=== PATIENT | female | born 1930 | race Caucasian/White ===

== ENCOUNTER 2017-08-21 00:42 | Emergency (ER) | payer MEDICARE ==
[~2017-08-21] VITALS: Ht 160 cm; Wt 81.6 kg
--- OUTSIDE RECORDS SUMMARY | 2017-08-21 00:51 | XMS REPORT ---
Author Author Kanika Wilson [facility] Address [address] [place], [place] [id number] Care Team Providers Care Ribbon Inker Name Role Phone Kanika Wilson PCP [phone] Kanika Wilson PreferredProvider [phone] Allergies and Adverse Reactions Name Reaction Notes No known allergies Plan of Treatment Planned Activity Comments Planned Date Planned Time Plan/Goal PROTEIN URINE DIPSTICK 11/10/2016 12:00 AM Creatine ur 11/10/2016 12:00 AM CBC W/ MANUAL DIFF 11/10/2016 12:00 AM HEMOGLOBIN A1C 11/10/2016 12:00 AM CMP 11/10/2016 12:00 AM LIPID PANEL 11/10/2016 12:00 AM Magnesium level 11/10/2016 12:00 AM URIC ACID. 11/10/2016 12:00 AM Total triiodothyronine (T3) measurement 11/10/2016 12:00 AM TSH 11/10/2016 12:00 AM Free thyroxine (FT4) measurement 11/10/2016 12:00 AM VITAMIN D (25 HYDROXY) 11/10/2016 12:00 AM VITAMIN B12 & FOLATE 11/10/2016 12:00 AM VITAMIN B12 & FOLATE 11/10/2016 12:00 AM Parathyroid hormone (PTH) measurement 11/10/2016 12:00 AM Medications Active Name Start Date Estimated Completion Date SIG Comments carvedilol 25 mg oral tablet take 1 tablet (25 mg) by oral route 2 times per day with food gemfibrozil 600 mg oral tablet take 1 tablet (600 mg) by oral route 2 times per day 30 minutes before morning and evening meal levothyroxine 100 mcg oral tablet take 1 tablet (100 mcg) by oral route once daily trazodone 50 mg oral tablet take 1 tablet (50 mg) by oral route once daily at bedtime Vitamin D3 1,000 unit oral capsule take 1 capsule by oral route daily tramadol 50 mg oral tablet take 1 tablet (50 mg) by oral route every 6 hours as needed fish oil with omega 3 600 mg / 300mg oral take one capsule daily loratadine 10 mg oral tablet take 1 tablet (10 mg) by oral route once daily Symbicort 160-4.5 mcg/actuation inhalation HFA aerosol inhaler 10/23/201611/22 1 puff am and pm and then rinse throat cyanocobalamin (vitamin B-12) 1,000 mcg/mL injection solution 10/23/20162017 inject 1 milliliter (1,000 mcg) by intramuscular route once a month for 300 days Discontinued Name Start Date Discontinued Date SIG Comments tramadol 50 mg oral tablet 10/23/2016 Problem List Not available. Vital Signs Date Time BP-Sys(mm[Hg] BP-Stella(mm[Hg]) HR(bpm) RR(rpm) Temp WT HT HC BMI BSA BMI Percentile O2 Sat(%) 10/23/2016 10:01:00 AM 112 mmHg 68 mmHg 54 bpm 18 rpm 97 F 154 lbs 62 in 28.17 kg/m2 1.75 m2 93 % Social History Name Description Comments retired Tobacco Former smoker quit 25 years ago Alcohol Never Caffeine Current every day Exercises regularly walking, gardening, cleaning house History of Procedures Date Ordered Description Order Status 11/10/2016 12:00 AM ROUTINE VENIPUNCTURE Reviewed Results Summary Not available. History Of Immunizations Not available. History of Past Illness Name Date of Onset Comments Arthritis Hyperlipemia Kidney disease Hypothyroidism Seasonal allergic rhinitis due to pollen Oct 23 2016 10:12AM Hyperlipidemia, Mixed Oct 23 2016 10:12AM Chronic kidney disease, Stage III (moderate) Oct 23 2016 10:12AM Acquired hypothyroidism Oct 23 2016 10:12AM Pernicious anemia Oct 23 2016 10:12AM Vitamin D deficiency Oct 23 2016 10:12AM COPD (chronic obstructive pulmonary disease) with chronic bronchitis Oct 23 2016 10:12AM Insomnia Oct 23 2016 10:12AM Arthritis Oct 23 2016 10:12AM Hyperparathyroidism due to renal insufficiency Oct 23 2016 10:12AM Hyperglycemia Oct 23 2016 10:12AM Benign essential HTN Oct 23 2016 10:12AM Acute kidney failure, unspecified Nov 10 2016 9:36AM Chronic kidney disease, stage 3 (moderate) Nov 10 2016 9:36AM Essential hypertension Nov 10 2016 9:36AM Blood glucose elevated Nov 10 2016 9:36AM Acquired hyperlipoproteinemia Nov 10 2016 9:36AM Acquired hypothyroidism Nov 10 2016 9:36AM Low vitamin D level Nov 10 2016 9:36AM [place] anemia Nov 10 2016 9:36AM Hyperparathyroidism, secondary renal Nov 10 2016 9:36AM Payers Insurance Name Company Name Plan Name Plan Number Policy Number Policy Group Number Start Date Humana Humana [id number] N/A Medicare Part B Medicare Of [place] [id number] N/A History of Encounters Visit Date Visit Type Provider 11/10/2016 Laboratory Kanika Wilson CUSTOMER ENERGY SPECIALIST 10/23/2016 Office visit Kanika Wilson CUSTOMER ENERGY SPECIALIST 09/18/2010 Hospital Radha Ching MD
--- OUTSIDE RECORDS SUMMARY | 2017-08-21 00:51 | XMS REPORT ---
Author Author Kanika Wilson [facility] Address [address] [place], [place] [id number] Care Team Providers Care Graphotype Operator Name Role Phone Kanika Wilson PCP [phone] Kanika Wilson PreferredProvider [phone] Allergies and Adverse Reactions Name Reaction Notes No known allergies Plan of Treatment Planned Activity Comments Planned Date Planned Time Plan/Goal PROTEIN URINE DIPSTICK 11/10/2016 12:00 AM Medications Active Name Start [...] HC BMI BSA BMI Percentile O2 Sat(%) 11/20/2016 3:13:00 PM 142 mmHg 90 mmHg 98 bpm 18 rpm 98.6 F 155 lbs 62 in 28.35 kg/m2 1.75 m2 94 % 10/23/2016 10:01:00 AM 112 mmHg 68 mmHg 54 bpm 18 rpm 97 F 154 lbs 62 in 28.1667 kg/m 1.7481 m 93 % Social History Name Description Comments retired Tobacco Former smoker quit 25 years ago Alcohol Never Caffeine Current every day Exercises regularly walking, gardening, cleaning house History of Procedures Date Ordered Description Order Status 11/10/2016 12:00 AM ASSAY OF CREATINE Returned 11/10/2016 12:00 AM COMPLETE CBC AUTOMATED Returned 11/10/2016 12:00 AM GLYCOSYLATED HEMOGLOBIN TEST Returned 11/10/2016 12:00 AM COMPREHEN METABOLIC PANEL Returned 11/10/2016 12:00 AM LIPID PANEL Returned 11/10/2016 12:00 AM ASSAY OF MAGNESIUM Returned 11/10/2016 12:00 AM ASSAY OF BLOOD/URIC ACID Returned 11/10/2016 12:00 AM ASSAY TRIIODOTHYRONINE (T3) Returned 11/10/2016 12:00 AM ASSAY THYROID STIM HORMONE Returned 11/10/2016 12:00 AM ASSAY OF FREE THYROXINE Returned 11/10/2016 12:00 AM VITAMIN D 25 HYDROXY Returned 11/10/2016 12:00 AM VITAMIN B-12 Returned 11/10/2016 12:00 AM ASSAY OF FOLIC ACID SERUM Returned 11/10/2016 12:00 AM ASSAY OF PARATHORMONE Returned 11/10/2016 12:00 AM ROUTINE VENIPUNCTURE Reviewed 11/20/2016 12:00 AM THER/PROPH/DIAG INJ SC/IM Reviewed 11/20/2016 12:00 AM Depo-Medrol 40mg Injection Reviewed Results Summary Date and Description Results 11/10/2016 9:00 AM FREE T4 0.71 TSH 4.630 uIU/mLT3 TOTAL 51.0 ng/dLVITAMIN B12 606.0 pg/mLFOLATE 6.30 ng/mLPROTEIN UR <7 mg/dLCREAT UR RAND 18.90 mg/dLVITAMIN D 55.20 ng/mLHGB A1C 5.20 %Est Avg Glucose 102.5 mg/dLGLUCOSE 104.0 mg/dLSODIUM 139.0 mmol/LPOTASSIUM 5.30 mmol/LCHLORIDE 103.0 mmol/LCO2 30.0 mmol/LBUN 23.0 mg /dLCREATININE 1.60 mg/dLSGOT/AST 16.0 IU/LSGPT/ALT 7.0 IU/LALK PHOS 65.0 IU/ LTOTAL PROTEIN 6.60 g/dLALBUMIN 4.0 g/dLTOTAL BILI 0.30 mg/dLCALCIUM 9.0 mg/ dLAGE 87 GFR NonAA 30 GFR AA 36 eGFR 30 eGFR AA* 36 MAGNESIUM 2.0 mg/ dLTRIGLYCERIDES 145.0 mg/dLCHOLESTEROL 226.0 mg/dLHDL 27.0 mg/dLTOT CHOL/HDL 8.4 LDL (CALC) 170.0 mg/dLURIC ACID 6.2 mg/dLPTH, Intact 38 History Of Immunizations Not available. History of [...] vitamin D level Nov 10 2016 9:36AM [place] anemia Nov 10 2016 9:36AM Hyperparathyroidism, secondary renal Nov 10 2016 9:36AM Other vitamin B12 deficiency anemia Nov 20 2016 3:16PM DDD (degenerative disc disease), lumbar Nov 20 2016 3:16PM Sciatica of left side Nov 20 2016 3:16PM CKD (chronic kidney disease) stage 3, GFR 30-59 ml/min Nov 20 2016 3:16PM Payers Insurance Name Company Name Plan Name Plan Number Policy Number Policy Group Number Start Date Humana Humana [id number] N/A Medicare Part B Medicare Of [place] [id number] N/A History of Encounters Visit Date Visit Type Provider 11/20/2016 Office visit Kanika Wilson BALLROOM DANCE INSTRUCTOR 11/10/2016 Laboratory Kanika Wilson BALLROOM DANCE INSTRUCTOR 10/23/2016 Office visit Kanika Wilson BALLROOM DANCE INSTRUCTOR 09/18/2010 [facility] Radha Ching MD
--- OUTSIDE RECORDS SUMMARY | 2017-08-21 00:52 | XMS REPORT ---
Author Author Kanika Wilson [facility] Address [address] [place], [place] [address] Care Team Providers Care Wildlife Control Operator Name Role Phone Kanika Wilson PCP Kanika Wilson PreferredProvider Allergies and Adverse Reactions Name Reaction Notes No known allergies Plan of Treatment Not available. Medications Active Name Start Date Estimated Completion [...] (10 mg) by oral route once daily cyanocobalamin (vitamin B-12) 1,000 mcg/mL injection solution 10/23/20162017 inject 1 milliliter (1,000 mcg) by intramuscular route once a month for 300 days Name Start Date Expiration Date SIG Comments Symbicort 160-4.5 mcg/actuation inhalation HFA aerosol inhaler 10/23/201611/22 1 puff am and pm and then rinse throat Zithromax Z-Dat 250 mg oral tablet 01/01/2017 01/06/2017 take 2 tablets (500 mg ) by oral route once daily for 1 day then 1 tablet (250 mg) by oral route once daily for 4 days Discontinued Name Start Date Discontinued Date [...] Ordered Description Order Status 11/10/2016 12:00 AM URINALYSIS AUTO W/O SCOPE Reviewed 11/10/2016 12:00 AM ASSAY OF CREATINE Reviewed 11/10/2016 12:00 AM COMPLETE CBC AUTOMATED Reviewed 11/10/2016 12:00 AM GLYCOSYLATED HEMOGLOBIN TEST Reviewed 11/10/2016 12:00 AM COMPREHEN METABOLIC PANEL Reviewed 11/10/2016 12:00 AM LIPID PANEL Reviewed 11/10/2016 12:00 AM ASSAY OF MAGNESIUM Reviewed 11/10/2016 12:00 AM ASSAY OF BLOOD/URIC ACID Reviewed 11/10/2016 12:00 AM ASSAY TRIIODOTHYRONINE (T3) Reviewed 11/10/2016 12:00 AM ASSAY THYROID STIM HORMONE Reviewed 11/10/2016 12:00 AM ASSAY OF FREE THYROXINE Reviewed 11/10/2016 12:00 AM VITAMIN D 25 HYDROXY Reviewed 11/10/2016 12:00 AM VITAMIN B-12 Reviewed 11/10/2016 12:00 AM ASSAY OF FOLIC ACID SERUM Reviewed 11/10/2016 12:00 AM ASSAY OF PARATHORMONE Reviewed 11/10/2016 12:00 AM ROUTINE VENIPUNCTURE Reviewed 11/20/2016 12:00 AM THER/PROPH/DIAG INJ SC/IM Reviewed 11/20/2016 12:00 AM Depo-Medrol 40mg Injection Reviewed 01/01/2017 12:00 AM THER/PROPH/DIAG INJ SC/IM Reviewed 01/01/2017 12:00 AM Decadron 4mg Injection Reviewed 01/01/2017 12:00 AM Depo-Medrol 40mg Injection Reviewed 04/22/2017 12:00 AM THER/PROPH/DIAG INJ SC/IM Reviewed 04/22/2017 12:00 AM B12 1000mcg Injection Reviewed 06/08/2017 12:00 AM THERAPEUTIC PROPHYLACTIC/DX INJECTION SUBQ/IM Reviewed Results Summary Date and Description Results [...] 8.4 LDL (CALC) 170.0 mg/dLURIC ACID 6.2 mg/dLWBC 4.9 RBC 3.42 HGB 10.40 g/dLHCT 33.30 %MCV 97.0 fLMCH 30.40 pgMCHC 31.20 g/dLRDW SD 50 RDW CV 14.0 %MPV 11.50 fLPLT 152 NRBC# 0.00 NRBC% 0.0 %NEUT 64.70 %%LYMP 19.90 %%MONO 7.30 %%EOS 6.70 % %BASO 0.80 %#NEUT 3.18 #LYMP 0.98 #MONO 0.36 #EOS 0.33 #BASO 0.04 SEGS 66 BANDS 1 LYMPHS 20 MONOS 8 EOS 5.0 %PTH, Intact 38 History Of Immunizations Not available. [...] GFR 30-59 ml/min Nov 20 2016 3:16PM Acute seasonal allergic rhinitis due to pollen Jan 01 2017 11:57AM Acute bronchitis, unspecified organism Jan 01 2017 11:57AM B12 deficiency Apr 22 2017 10:25AM B12 deficiency Jun 08 2017 1:05PM Payers Insurance Name Company Name Plan Name Plan Number Policy Number Policy Group Number Start Date Humana Humana [id number] N/A Medicare Part B Medicare Of [place] [id number] N/A History of Encounters Visit Date Visit Type Provider 06/08/2017 Nurse visit Kanika Wilson METER MECHANIC 04/22/2017 Nurse visit Kanika Wilson METER MECHANIC 01/01/2017 Office visit Kanika Wilson METER MECHANIC 11/20/2016 Office visit Kanika Wilson METER MECHANIC 11/10/2016 Laboratory Kanika Wilson METER MECHANIC 10/23/2016 Office visit Kanika Wilson METER MECHANIC 09/18/2010 [facility] Radha Ching MD
--- OUTSIDE RECORDS SUMMARY | 2017-08-21 00:52 | XMS REPORT ---
Author Author Kanika Wilson [facility] Address [address] [place], [place] [address] Care Team Providers Care Flour Blender Name Role Phone Kanika Wilson PCP [phone] Kanika Wilson PreferredProvider [phone] Allergies and Adverse Reactions Name Reaction Notes [...] 04/22/2017 12:00 AM B12 1000mcg Injection Reviewed Results Summary Date and Description [...] vitamin D level Nov 10 2016 9:36AM [place] anemia Nov 10 2016 9:36AM Hyperparathyroidism, secondary [...] 11:57AM B12 deficiency Apr 22 2017 10:25AM Payers Insurance Name Company Name Plan Name Plan Number Policy Number Policy Group Number Start Date Humana Humana [id number] N/A Medicare Part B Medicare Of [place] [id number] N/A History of Encounters Visit Date Visit Type Provider 04/22/2017 Nurse visit Kanika Wilson AIDS COUNSELOR 01/01/2017 Office visit Kanika Wilson AIDS COUNSELOR 11/20/2016 Office visit Kanika Wilson AIDS COUNSELOR 11/10/2016 Laboratory Kanika Wilson AIDS COUNSELOR 10/23/2016 Office visit Kanika Wilson AIDS COUNSELOR 09/18/2010 Louisa Ching MD
--- OUTSIDE RECORDS SUMMARY | 2017-08-21 00:52 | XMS REPORT ---
Author Author Kanika Wilson [facility] Address [address] [place], [place] [address] Care Team Providers Care Powerhouse Helper Name Role Phone Kanika Wilson PCP [phone] Kanika Wilson PreferredProvider [phone] Allergies and Adverse Reactions Name Reaction Notes [...] 01/01/2017 12:00 AM Depo-Medrol 40mg Injection Reviewed Results [...] bronchitis, unspecified organism Jan 01 2017 11:57AM Payers Insurance Name Company Name Plan Name Plan Number Policy Number Policy Group Number Start Date Humana Humana [id number] N/A Medicare Part B Medicare Of [place] [id number] N/A History of Encounters Visit Date Visit Type Provider 01/01/2017 Office visit Kanika Wilson WASHTUB WORKER HELPER 11/20/2016 Office visit Kanika Wilson WASHTUB WORKER HELPER 11/10/2016 Laboratory Kanika Wilson WASHTUB WORKER HELPER 10/23/2016 Office visit Kanika Wilson WASHTUB WORKER HELPER 09/18/2010 Hospital Radha Ching MD
--- OUTSIDE RECORDS SUMMARY | 2017-08-21 00:53 | XMS REPORT ---
Author Author Kanika Wilson [facility] Address [address] [place], [place] [phone] Care Team Providers Care Custom Car Builder Name Role Phone Kanika Wilson PCP Kanika [...] 12:00 AM THERAPEUTIC PROPHYLACTIC/DX INJECTION SUBQ/IM Reviewed 06/08/2017 12:00 AM B12 1000mcg Injection, RHC Medicare Reviewed Results Summary Date and Description Results [...] vitamin D level Nov 10 2016 9:36AM [place] anemia Nov 10 2016 9:36AM Hyperparathyroidism, secondary [...] Policy Number Policy Group Number Start Date Medicare [facility] Medicare [facility] [id number] N/A Medicare Part A Medicare - Lab/Xray [id number] N/A Humana Humana [id number] N/A Medicare Part B Medicare Of [place] [id number] N/A History of Encounters Visit Date Visit Type Provider 06/08/2017 Nurse visit Kanika Wilson BABY STROLLER RENTAL CLERK 04/22/2017 Nurse visit Kanika Wilson BABY STROLLER RENTAL CLERK 01/01/2017 Office visit Kanika Wilson BABY STROLLER RENTAL CLERK 11/20/2016 Office visit Kanika Wilson BABY STROLLER RENTAL CLERK 11/10/2016 Laboratory Kanika Shaun Wilson BABY STROLLER RENTAL CLERK 10/23/2016 Office visit Kanika Wilson BABY STROLLER RENTAL CLERK 09/18/2010 [facility] Radha Ching MD
--- OUTSIDE RECORDS SUMMARY | 2017-08-21 00:53 | XMS REPORT ---
Author Author Kanika Wilson [facility] Address [address] [place], [place] [address] Care Team Providers Care Senior Front End Developer Name Role Phone Kanika Wilson PCP [phone] Kanika Wilson PreferredProvider [phone] Allergies and Adverse Reactions Name Reaction Notes [...] am and pm and then rinse throat Discontinued Name Start Date Discontinued Date SIG [...] Reviewed 11/10/2016 12:00 AM ASSAY OF CREATINE Returned [...] Policy Group Number Start Date Humana Humana [id number] N/A Medicare Part B Medicare Of [place] [id number] N/A History of Encounters Visit Date Visit Type Provider 11/20/2016 Office visit Kanika Wilson XEROX MACHINE OPERATOR 11/10/2016 Laboratory Kanika Wilson XEROX MACHINE OPERATOR 10/23/2016 Office visit Kanika Wilson XEROX MACHINE OPERATOR 09/18/2010 Hospital Radha Ching MD
--- OUTSIDE RECORDS SUMMARY | 2017-08-21 00:53 | XMS REPORT ---
Author Author Kanika Wilson [facility] Address [address] [place], [place] [address] Care Team Providers Care Coal Tower Operator Name Role Phone Kanika Wilson PCP [phone] Kanika Wilson PreferredProvider [phone] Allergies and Adverse Reactions Name Reaction Notes [...] vitamin D level Nov 10 2016 9:36AM [place] anemia Nov 10 2016 9:36AM Hyperparathyroidism, secondary [...] Policy Group Number Start Date Humana Humana [id number] N/A Medicare Part B Medicare Of [place] [id number] N/A History of Encounters Visit Date Visit Type Provider 04/22/2017 Nurse visit Kanika Wilson RFID TECHNICIAN 01/01/2017 Office visit Kanika Wilson RFID TECHNICIAN 11/20/2016 Office visit Kanika Wilson RFID TECHNICIAN 11/10/2016 Laboratory Kanika Wilson RFID TECHNICIAN 10/23/2016 Office visit Kanika Wilson RFID TECHNICIAN 09/18/2010 Louisa Ching MD
--- OUTSIDE RECORDS SUMMARY | 2017-08-21 00:54 | XMS REPORT ---
Author Author Kanika Wilson [facility] Address [address] [place], [place] [address] Care Team Providers Care Development Associate Name Role Phone Kanika Wilson PCP Kanika Wilson PreferredProvider Allergies and Adverse Reactions Name Reaction Notes No known allergies Plan of Treatment Planned Activity Comments Planned Date Planned Time Plan/Goal TSH 07/08/2017 12:00 AM T4 FREE 07/08/2017 12:00 AM Medications Active Name Start Date Estimated Completion Date SIG Comments levothyroxine 100 mcg oral tablet take 1 tablet (100 mcg) by oral route once daily Vitamin D3 1,000 unit oral capsule take 1 capsule by oral route daily fish oil with omega 3 600 mg / 300mg oral take one capsule daily cyanocobalamin (vitamin B-12) 1,000 mcg/mL injection solution 10/23/20162017 inject 1 milliliter (1,000 mcg) by intramuscular route once a month for 300 days Namenda Titration Dat 5-10 mg oral tablets,dose pack 07/07/2017 take as directed DAILY ON PACK Celexa 20 mg oral tablet 07/07/2017 08/06/2017 take 1 tablet (20 mg) by oral route once daily in the morning for 30 days carvedilol 25 mg oral tablet 07/07/2017 10/05/2017 take 1 tablet (25 mg) by oral route per day with food for 90 days tramadol 50 mg oral tablet 07/07/2017 08/06/2017 take 1 tablet (50 mg) by oral route AT BEDTIME Name Start Date Expiration Date SIG Comments [...] Name Start Date Discontinued Date SIG Comments gemfibrozil 600 mg oral tablet 07/07/2017 take 1 tablet (600 mg) by oral route 2 times per day 30 minutes before morning and evening meal tramadol 50 mg oral tablet 10/23/2016 trazodone 50 mg oral tablet 07/07/2017 take 1 tablet (50 mg) by oral route once daily at bedtime loratadine 10 mg oral tablet 07/07/2017 take 1 tablet (10 mg) by oral route once daily Problem List Not available. Vital Signs Date Time BP-Sys(mm[Hg] BP-Stella(mm[Hg]) HR(bpm) RR(rpm) Temp WT HT HC BMI BSA BMI Percentile O2 Sat(%) 07/07/2017 10:34:00 AM 132 mmHg 84 mmHg 58 bpm 18 rpm 97.6 F 145.375 lbs 62 in 26.59 kg/m2 1.70 m2 97 % 11/20/2016 3:13:00 PM 142 mmHg 90 mmHg 98 bpm 18 rpm 98.6 F 155 lbs 62 in 28.3496 kg/m 1.7537 m 94 % 10/23/2016 10:01:00 AM 112 mmHg [...] 10:25AM B12 deficiency Jun 08 2017 1:05PM Alzheimer disease Jul 07 2017 10:35AM Hyperlipidemia, Mixed Jul 07 2017 10:35AM Hypertension, Benign Essential Jul 07 2017 10:35AM Constipation Jul 07 2017 10:35AM Hypothyroidism (acquired) Jul 08 2017 6:13PM Payers Insurance Name Company Name Plan Name Plan Number Policy Number Policy Group Number Start Date Medicare RHC Medicare RHC [id number] N/A Medicare Part A Medicare - Lab/Xray [id number] N/A Humana Humana [id number] N/A Medicare Part B Medicare Of [place] [id number] N/A History of Encounters Visit Date Visit Type Provider 07/07/2017 Office visit Kanika Wilson TURNING MACHINE OPERATOR 06/08/2017 Nurse visit Kanika Wilson TURNING MACHINE OPERATOR 04/22/2017 Nurse visit Kanika Wilson TURNING MACHINE OPERATOR 01/01/2017 Office visit Kanika Wilson TURNING MACHINE OPERATOR 11/20/2016 Office visit Kanika Wilson TURNING MACHINE OPERATOR 11/10/2016 Laboratory Kanika Wilson TURNING MACHINE OPERATOR 10/23/2016 Office visit Kanika Wilson TURNING MACHINE OPERATOR 09/18/2010 Louisa Ching MD
--- OUTSIDE RECORDS SUMMARY | 2017-08-21 00:54 | XMS REPORT | CCD ---
Author Author JUWAN ZAPATA Organization Unknown Address [address] [facility] [address] [place], [place] [address] Care Team Providers Care Trapeze Artist Name Role Phone EMPERATRIZ JI DO Attphys JILAMR DO Prisurg Vital Signs Unknown or Not Available. Allergies Allergy Code Allergy Type Reaction Status No Known Drug Allergies 0 No known drug allergies Active Procedures Procedure Code Procedure Type Date ^CBC W/AUTO DIFF 9396119 SNOMED CT 06/08/2015 CBC W/ AUTO DIFF (RFLX MAN DIFF IF IND) 7948833 SNOMED CT 06/08/2015 COMPREHENSIVE METABOLIC PANEL 507032150 SNOMED CT [address] 06/08/2015 ABDOMEN 2 VIEW DECUB/UPRIGHT 440951029 SNOMED CT 2015 History of Immunizations Unknown or Not Available. Problems Unknown or Not Available. Results COMPREHENSIVE METABOLIC PANEL - Collect Date/Time: 06/08/2015 13:50 Test Name Code Test Result Test Units Test Ref Range GLUCOSE 2345-7 89 MG/DL L=70 H=100 SODIUM 2951-2 139 MEQ/L L=135 H=148 POTASSIUM 2823-3 4.6 MEQ/L L=3.5 H=5.3 CHLORIDE 2075-0 104 MEQ/L L=96 H=110 CO2 2028-9 25 MEQ/L L=22 H=29 BUN 3094-0 22 MG/DL L=8 H=22 CREATININE 2160-0 1.5 MG/DL L=0.6 H=1.6 SGOT/AST 1920-8 16 IU/L L=10 H=40 SGPT/ALT 1742-6 9 IU/L L=8 H=54 ALK PHOS 6768-6 66 IU/L L=35 H=115 TOTAL PROTEIN 2885-2 6.6 G/DL L=5.5 H=8.5 ALBUMIN 1751-7 4.0 G/DL L=3.1 H=5.4 TOTAL BILI 1975-2 0.3 MG/DL L=0.0 H=1.5 CALCIUM 75807-9 9.6 MG/DL L=8.2 H=10.6 AGE 85 yrs GFR NonAA 33 GFR AA 40 eGFR 33 mL/min/1.7 eGFR AA* 40 mL/min/1.7 LIPASE - Collect Date/Time: 06/08/2015 13:50 Test Name Code Test Result Test Units Test Ref Range LIPASE 3040-3 41 U/L L=8 H=78 CBC W/ AUTO DIFF (RFLX MAN DIFF IF IND) - Collect Date/Time: 06/08/2015 13:50 Test Name Code Test Result Test Units Test Ref Range WBC 06198-2 5.4 TH/CMM L=4.5 H=10.8 RBC 789-8 3.41 ML/CMM L=4.20 H=5.40 HGB 718-7 10.6 G/DL L=12.0 H=16.0 HCT 4544-3 32.1 % L=37.0 H=47.0 MCV 94 FL L=81 H=99 MCH 31.1 PG L=27.0 H=33.0 MCHC 33.0 G/DL L=31.0 H=36.0 RDW SD 48 FL L=36 H=50 RDW CV 14.1 % L=0.0 H=14.8 MPV 10.4 FL L=9.3 H=12.5 PLT 777-3 157 TH/CMM L=130 H=440 NRBC# 0.00 TH/CMM L=0.00 H=0.00 NRBC% 0.0 /100WBC L=0.0 H=2.0 %NEUT 68.9 % %LYMP 20.2 % %MONO 7.2 % %EOS 3.1 % %BASO 0.6 % #NEUT 3.72 TH/CMM L=2.10 H=8.20 #LYMP 1.09 TH/CMM L=0.90 H=5.20 #MONO 0.39 TH/CMM L=0.16 H=1.00 #EOS 0.17 TH/CMM L=0.00 H=0.80 #BASO 0.03 TH/CMM L=0.00 H=0.20 MANUAL DIFF NOT IND N/A Active Medications Unknown or Not Available. Medications Administered During Visit Unknown or Not Available. Encounters Encounter Diagnosis Diagnosis Code Start Date Noninfectious gastroenteritis 83395824 06/08/2015 Social History Smoking Status Code Start Date End Date Never smoker [id number] Patient Decision Aids Unknown or Not Available. Discharge Instructions You were admitted to [facility] on 06/08/2015 13:17 with a principal diagnosis of Noninfective gastroenteritis and colitis, unspecified You had the following tests done: CBC W/ AUTO DIFF (RFLX MAN DIFF IF IND) COMPREHENSIVE METABOLIC PANEL LIPASE You were discharged from [facility] on 06/08/2015 15:07 Should you have any questions prior to discharge, please contact a member of your healthcare team. If you have left the hospital and have any questions, please contact your primary care physician. Chief Complaint and Reason For Visit Chief Complaint Date of Onset ABDOMINAL PAIN DIARRHEA ACHY Function Status Unknown or Not Available. Plan of Care Unknown or Not Available. Referral/Transition of Care Unknown or Not Available.
--- OUTSIDE RECORDS SUMMARY | 2017-08-21 00:54 | XMS REPORT ---
Author Author Kanika Wilson [facility] Address [address] [place], [place] [id number] Care Team Providers Care Contact Lens Fitter Name Role Phone Kanika Wilson PCP Kanika [...] vitamin D level Nov 10 2016 9:36AM [place] anemia Nov 10 2016 9:36AM Hyperparathyroidism, secondary [...] 2017 10:35AM Constipation Jul 07 2017 10:35AM Payers Insurance Name Company Name Plan Name Plan Number Policy Number Policy Group Number Start Date Medicare RHC Medicare RHC [id number] N/A Medicare Part A Medicare - Lab/Xray [id number] N/A Hum[employer] Hum[employer] [id number] N/A Medicare Part B Medicare Of [place] [id number] N/A History of Encounters Visit Date Visit Type Provider 07/07/2017 Office visit Kanika Wilson MACHINE ROUGH ROUNDER 06/08/2017 Nurse visit Kanika Wilson MACHINE ROUGH ROUNDER 04/22/2017 Nurse visit Kanika Wilson MACHINE ROUGH ROUNDER 01/01/2017 Office visit Kanika Wilson MACHINE ROUGH ROUNDER 11/20/2016 Office visit Kanika Wilson MACHINE ROUGH ROUNDER 11/10/2016 Laboratory Kanika Wilson MACHINE ROUGH ROUNDER 10/23/2016 Office visit Kanika Wilson MACHINE ROUGH ROUNDER 09/18/2010 Hospital Radha Ching MD
--- OUTSIDE RECORDS SUMMARY | 2017-08-21 00:54 | XMS REPORT | CCD ---
Author Author JUWAN ZAPATA Organization Unknown Address [address] [facility] [address] [place], [place] [id number] Care Team Providers Care Glass Smoother Name Role Phone [facility] [place] Attphys [facility] [place] Prisurg Vital Signs Unknown or Not Available. Allergies Allergy Code Allergy Type Reaction Status No Known Drug Allergies 0 No known drug allergies Active Procedures Procedure Code Procedure Type Date CX CHEST [id number] 05/31/2015 History of Immunizations Unknown or Not Available. Problems Unknown or Not Available. Results Unknown or Not Available. Active Medications Unknown or Not Available. Medications Administered During Visit Unknown or Not Available. Encounters Encounter Diagnosis Diagnosis Code Start Date Acute bronchitis, unspecified J209 05/31/2015 Social History Smoking Status Code Start Date End Date Never smoker [id number] Patient Decision Aids Unknown or Not Available. Discharge Instructions You were admitted to [facility] on 05/31/2015 with a principal diagnosis of Acute bronchitis, unspecified. You were discharged from [facility] on 05/31/2015. Should you have any questions prior to discharge, please contact a member of your healthcare team. If you have left the hospital and have any questions, please contact your primary care physician. Chief Complaint and Reason For Visit Chief Complaint Date of Onset COUGH Function Status Unknown or Not Available. Plan of Care Unknown or Not Available. Referral/Transition of Care Unknown or Not Available.
--- NOTE | 2017-08-21 03:29 | ED Fall/Injury ---
General Chief Complaint: Trauma-Non Activation Stated Complaint: FALL Nursing Triage Note: pt brought in by ems from [facility]. per snf staff, pt rolled out of bed and was found on floor. per pt, she had gotten herself dressed, fell on floor, and picked herself back up off the floor. pt karen any pain or hitting her head. Source: patient, EMS Exam Limitations: clinical condition (baseline dementia) History of Present Illness Date Seen by Provider: Aug 21, 2017 Time Seen by Provider: 01:30 Initial Comments Patient presents to ER by EMS from [facility] where staff says that she rolled out of bed she says she got herself back up because of back to bed and EMS says she was in bed and they got there. Patient denies having any pain anywhere. She was walking around the room without difficulty. She has no changes in vision, numbness, headache, nausea, shortness of breath, dysuria. Allergies and Home Medications Allergies Coded Allergies: No Known Drug Allergies (Unverified , 08/21/17) Patient Home Medication List Home Medication List Reviewed: Yes Constitutional: No chills, No diaphoresis Eyes: Denies Blindness, Denies Blurred Vision, Denies Drainage Ears, Nose, Mouth, Throat: denies ear pain, denies nose pain Respiratory: No cough, No short of breath Cardiovascular: No chest pain, No edema Gastrointestinal: No abdominal pain, No diarrhea, No nausea Genitourinary: No discharge, No dysuria Past Sgervbx-Ciuyew-Psbwte Hx Patient Social History Alcohol Use: Denies Use Recreational Drug Use: No Smoking Status: Never a Smoker Recent Foreign Travel: No Contact w/Someone Who Travel: No Recent Infectious Disease Expo: No Physical Exam Vital Signs Vital Signs - First Documented 08/21/17 00:42 Pulse 85 Resp 20 B/P (MAP) 144/63 (90) Pulse Ox 95 O2 Delivery Room Air Capillary Refill : Less Than 3 Seconds General Appearance: WD/WN, no apparent distress HEENT: PERRL/EOMI, pharynx normal, other (negative for hemotympanum or Booth sign. 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, no motor/sensory deficits, alert, normal mood/affect, other (oriented to person and place) Skin: normal color, warm/dry [place] Coma Score Best Eye Response: (4) Open Spontaneously Best Verbal Response: (5) Oriented Best Motor Response: (6) Obeys Commands [place] Total: 15 Progress/Results/Core Measures Results/Orders My Orders Orders - SHABANA HUSSEIN Ct Head/Cervical Spine Wo (08/21/17 03:23) Vital Signs/I&O Vital Sign - Last 12Hours 08/21/17 00:42 Pulse 85 Resp 20 B/P (MAP) 144/63 (90) Pulse Ox 95 O2 Delivery Room Air Blood Pressure Mean: 90 Progress Note : Time: 03:27 Progress Note The patient is not on aspirin or antiplatelet or blood thinners. She has been walking around the room at baseline. According to EMS her primary care provider was just trying to get her to go to [facility] to get a CT scan of the head but they do not have CT capability. Diagnostic Imaging Diagonstic Imaging: CT Plain Films/CT/US/NM/MRI: c-spine, head Comments No CT evidence for acute intracranial injury. No definite evidence for cervical spine fracture. Evaluation somewhat limited secondary to motion artifact. There is straightening of the normal cervical lordosis which may be related to muscle spasm. Degenerative changes of the cervical spine. Reviewed: Reviewed by Me Departure Impression Impression: Primary Impression: Fall Qualified Codes: W19.XXXA - Unspecified fall, initial encounter Disposition: 01 HOME, SELF-CARE Condition: Stable Departure-Patient Inst. Decision time for Depature: 04:33 Referrals: BETHANY MARR MD (PCP/Family) Primary Care Physician Patient Instructions: Preventing Falls in the Older Adult Copy Copies To 1: BETHANY MARR MD, TITUS J Aug 21, 2017 03:29
[2017-08-21 06:00] VITALS: BP 144/63
--- NOTE | 2017-08-21 06:58 | Diagnostic Imaging Report ---
PROCEDURE: CT head and CT cervical spine without contrast. TECHNIQUE: Multiple contiguous axial images were obtained through the brain and cervical spine without the use of intravenous contrast. Sagittal and coronal reformations through the cervical spine were then performed. INDICATION: Fall. Patient noncompliant. COMPARISON: None. FINDINGS: HEAD CT: No acute intracranial hemorrhage, mass effect or edema is seen. Arcos-white junction is preserved. Ventricles appear normal. There are moderate changes of probable chronic microvascular ischemic disease in the white matter. There is some chronic appearing mucosal thickening in left maxillary sinus. CERVICAL SPINE CT: Evaluation is limited by motion artifact. There is some straightening of the normal cervical lordosis which is nonspecific but may be muscular positional. There is also mild anterior subluxation of C4 and C5 and C5 on C6 which is likely degenerative. No acute fracture or traumatic malalignment is suspected. Vertebral body heights are maintained. There is disc space narrowing and spurring at multiple levels, particularly at C6/C7. There is facet arthropathy throughout cervical spine with multiple levels of foraminal narrowing. IMPRESSION: 1. No evidence of an acute intracranial abnormality. 2. No evidence of acute cervical spine abnormality. Evaluation is slightly limited due to motion artifact. There are diffuse degenerative changes as described. Agree with [facility] interpretation. Dictated by: Dictated on workstation # [id number]
== END 2017-08-21 06:00 | disposition home or self-care (01) ==
LOC: ER 00:48
DX: Z04.3 Encounter for examination and observation following other accident (principal); R40.2142 Coma scale, eyes open, spontaneous, at arrival to emergency department; R40.2252 Coma scale, best verbal response, oriented, at arrival to emergency department; R40.2362 Coma scale, best motor response, obeys commands, at arrival to emergency department; W06.XXXA Fall from bed, initial encounter
CPT/HCPCS: 70450; 72125

== ENCOUNTER 2017-08-23 19:11 | Emergency (ER) | payer MEDICARE ==
[~2017-08-23] VITALS: Ht 160 cm; Wt 81.6 kg
[2017-08-23] MEDS ORDERED: RT-ALBUTEROL/IPRATROPIUM 3 ML (DUONEB) VIAL INH ONE (19:30)
--- NOTE | 2017-08-23 19:38 | ED Fall/Injury ---
General Chief Complaint: Trauma-Non Activation Stated Complaint: FALL Nursing Triage Note: fall Source: patient, EMS, other (Marlyn at [facility]) Exam Limitations: other (dementia) History of Present Illness Date Seen by Provider: Aug 23, 2017 Time Seen by Provider: 19:15 Initial Comments 87-year-old female patient presents to the emergency department with complaints of falling earlier today that was witnessed by nursing staff at [facility]. Patient is known to this examiner for routine medical care at [facility] for Dr. Marr. Patient reportedly lost her balance and fell hitting the left side on the doorjam/wall. Staff denies LOC. Patient denies pain. Patient was started on oral antibiotics today for a UTI. Location Injury Occurred: [facility] Occurred: this evening Injuries/Pain Location: no injury Context: lost balance Loss of Consciousness: no loss of consciousness Allergies and Home Medications Allergies Coded Allergies: No Known Drug Allergies (Unverified , 08/21/17) Constitutional: no symptoms reported, No chills, No fever Eyes: No Symptoms Reported Ears, Nose, Mouth, Throat: no symptoms reported Respiratory: No cough, No phlegm, No short of breath Cardiovascular: No chest pain, No edema, No syncope Gastrointestinal: No abdominal pain, No constipation, No diarrhea, No loss of appetite, No nausea, No vomiting Genitourinary: no symptoms reported Musculoskeletal: No back pain, No joint pain, No neck pain Skin: No change in color, No lumps Psychiatric/Neurological: Denies Headache, Denies Numbness, Denies Paresthesia , Denies Seizure, Denies Tingling, Denies Weakness All Other Systems Reviewed Negative Unless Noted: Yes (Negative excepted noted.) Past Erzvzhb-Gkfxph-Aecxwt Hx Patient Social History Alcohol Use: Denies Use Recreational Drug Use: No Smoking Status: Never a Smoker Recent Foreign Travel: No Contact w/Someone Who Travel: No Recent Infectious Disease Expo: No Recent Hopitalizations: No Immunizations Up To Date Tetanus Booster (TDap): Unknown PED Vaccines UTD: Yes Seasonal Allergies Seasonal Allergies: No Surgeries History of Surgeries: Yes Respiratory History of Respiratory Disorde: No Cardiovascular History of Cardiac Disorders: Yes Cardiac Disorders: Hypertension Neurological History of Neurological Disord: Yes Neurological Disorders: Dementia Genitourinary History of Genitourinary Disor: Yes Genitourinary Disorders: UTI-Chronic Gastrointestinal History of Gastrointestinal Di: Yes Gastrointestinal Disorders: Chronic Constipation Musculoskeletal History of Musculoskeletal Dis: No Endocrine History of Endocrine Disorders: Yes Endocrine Disorders: Hypothyroidsim HEENT History of HEENT Disorders: No Cancer History of Cancer: No Psychosocial History of Psychiatric Problem: Yes Behavioral Health Disorders: Anxiety, Depression Integumentary History of Skin or Integumenta: No Reviewed Nursing Assessment Reviewed/Agree w Nursing PMH: Yes Family Medical History Significant Family History: No Pertinent Family Hx Physical Exam Vital Signs Vital Signs - First Documented 08/23/17 19:15 Temp 97.9 Pulse 72 Resp 12 B/P (MAP) 120/69 (86) Pulse Ox 94 O2 Delivery Nasal Cannula O2 Flow Rate 3.00 Capillary Refill : Less Than 3 Seconds General Appearance: WD/WN, no apparent distress HEENT: PERRL/EOMI, normal ENT inspection, TMs normal, pharynx normal Neck: non-tender, full range of motion, supple, normal inspection Cardiovascular: normal peripheral pulses, regular rate, rhythm, no edema, no gallop, no murmur Respiratory: chest non-tender, no respiratory distress, no accessory muscle use , rales, wheezing, expiration Peripheral Pulses: 2+ Carotid (R), 2+ Carotid (L), 2+ Dorsalis Pedis (R), 2+ Left Dors-Pedis (L), 2+ Radial Pulses (R), 2+ Radial Pulses (L) Gastrointestinal: normal bowel sounds, non tender, soft, no organomegaly, No distended Extremities: normal range of motion, non-tender, normal inspection, no pedal edema, no calf tenderness, normal capillary refill 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, no motor/sensory deficits, alert, normal mood/affect, other (oriented to self (similar to previous exams at the [facility]).) Skin: normal color, warm/dry, No ecchymosis [place] Coma Score Best Eye Response: (4) Open Spontaneously Best Verbal Response: (4) Confused Conversation (similar to usual exams at the [facility]) Best Motor Response: (6) Obeys Commands [place] Total: 14 Progress/Results/Core Measures Results/Orders Lab Results Laboratory Tests Test 08/23/17 19:35 Range/Units White Blood Count 6.0 4.3-11.0 10^3/uL Red Blood Count 3.19 L 4.35-5.85 10^6/uL Hemoglobin 10.2 L 11.5-16.0 G/DL Hematocrit 33 L 35-52 % Mean Corpuscular Volume 105 H 80-99 FL Mean Corpuscular Hemoglobin 32 25-34 PG Mean Corpuscular Hemoglobin Concent 31 L 32-36 G/DL Red Cell Distribution Width 16.1 H 10.0-14.5 % Platelet Count 120 L 130-400 10^3/uL Mean Platelet Volume 10.1 7.4-10.4 FL Neutrophils (%) (Auto) 76 H 42-75 % Lymphocytes (%) (Auto) 9 L 12-44 % Monocytes (%) (Auto) 12 0-12 % Eosinophils (%) (Auto) 3 0-10 % Basophils (%) (Auto) 0 0-10 % Neutrophils # (Auto) 4.5 1.8-7.8 X 10^3 Lymphocytes # (Auto) 0.5 L 1.0-4.0 X 10^3 Monocytes # (Auto) 0.7 0.0-1.0 X 10^3 Eosinophils # (Auto) 0.2 0.0-0.3 10^3/uL Basophils # (Auto) 0.0 0.0-0.1 10^3/uL Sodium Level 139 135-145 MMOL/L Potassium Level 5.8 H 3.6-5.0 MMOL/L Chloride Level 105 98-107 MMOL/L Carbon Dioxide Level 27 21-32 MMOL/L Anion Gap 7 5-14 MMOL/L Blood Urea Nitrogen 44 H 7-18 MG/DL Creatinine 1.87 H 0.60-1.30 MG/DL Estimat Glomerular Filtration Rate 25 BUN/Creatinine Ratio 24 Glucose Level 113 H 70-105 MG/DL Calcium Level 8.6 8.5-10.1 MG/DL Total Bilirubin 0.5 0.1-1.0 MG/DL Aspartate Amino Transf (AST/SGOT) 15 5-34 U/L Alanine Aminotransferase (ALT/SGPT) 11 0-55 U/L Alkaline Phosphatase 46 40-136 U/L C-Reactive Protein High Sensitivity 2.83 H 0.00-0.50 MG/DL Total Protein 6.3 L 6.4-8.2 GM/DL Albumin 3.7 3.2-4.5 GM/DL TOVA Garcia Ct Head/Cervical Spine Wo (08/23/17 19:22) Saline Lock/Iv-Start (08/23/17 19:22) Chest 1 View, Ap/Pa Only (08/23/17 19:22) Saline Lock/Iv-Start (08/23/17 19:22) Cbc With Automated Diff (08/23/17 19:22) Comprehensive Metabolic Panel (08/23/17 19:22) Hs C Reactive Protein (08/23/17 19:22) Albuterol/Ipra Inhalation Soln (Duoneb I (08/23/17 19:30) Svn Sm Volume Nebulizer Rt-Rfs (08/23/17 19:22) Ns Iv 1000 Ml (Sodium Chloride 0.9%) (08/23/17 20:16) Ceftriaxone Injection (Rocephin Injectio (08/23/17 20:30) Medications Given in ED Current Medications Medications Dose Ordered Sig/Soo Route Start Time Stop Time Status Last Admin Dose Admin Albuterol/ Ipratropium 3 ml ONCE ONCE INH 08/23/17 19:30 08/23/17 19:31 DC 08/23/17 19:31 3 ML Vital Signs/I&O Vital Sign - Last 12Hours 08/23/17 08/23/17 19:15 19:31 Temp 97.9 Pulse 72 Resp 12 B/P (MAP) 120/69 (86) Pulse Ox 94 94 O2 Delivery Nasal Cannula Nasal Cannula O2 Flow Rate 3.00 3.00 Blood Pressure Mean: 86 Diagnostic Imaging Diagonstic Imaging: CT Plain Films/CT/US/NM/MRI: c-spine, head Comments FINDINGS: The is prominence of the ventricles and sulci. There is mild chronic microvascular ischemic disease. There is no hydrocephalus. There is no midline shift. There is no intracranial mass, hemorrhage or extra-axial fluid collection. The calvarium is intact. The sinuses and mastoid air cells are clear. Evaluation of the cervical spine is limited due to motion. There is straightening of normal cervical lordosis. Vertebral body heights are well- maintained. There is posterior facet arthropathy. There is no definite acute fracture or traumatic subluxation. Prevertebral soft tissues are within normal limits. The lung apices are clear. IMPRESSION: Atrophy and some chronic microvascular ischemic disease, however, no acute intracranial abnormality. The evaluation of the cervical spine is limited due to motion. There is some moderate spondylosis, however, no definite acute fracture or traumatic subluxation. Dictated by: Dictated on workstation # [id number] Reviewed: Reviewed by Me (radiology report reviewed by me) Diagonstic Imaging: Xray Plain Films/CT/US/NM/MRI: chest Comments FINDINGS: There is cardiomegaly. There is some right basilar atelectasis and/or pneumonitis. No pleural effusion or pneumothorax. The mediastinum is unremarkable. IMPRESSION: Cardiomegaly and some right basilar atelectasis and/ or pneumonitis. Dictated by: Dictated on workstation # [id number] Reviewed: Reviewed by Me (radiology report reviewed by me) Departure Impression Impression: Primary Impression: Fall Qualified Codes: W19.XXXA - Unspecified fall, initial encounter Additional Impression: Atelectasis of right lung Disposition: XF SNF Condition: Stable Departure-Patient Inst. Decision time for Depature: 20:34 Referrals: BETHANY MARR MD (PCP/Family) Primary Care Physician Patient Instructions: Atelectasis, Preventing Falls in the Older Adult Add. Discharge Instructions: All discharge instructions reviewed with patient and/or family. Voiced understanding. 1- Medications as instructed. 2- Continue all current medications and orders. 3- Continue usual diet. 4- O2 to keep SaO2 >/= 90% 5- push fluids. 6- Mucinex 1 tab po BID prn congestion. 7- I will see Laurel this week at the facility for recheck. 8- Return to the emergency department for worsened symptoms, SOA, dizziness, fever, chest pain, changes in behavior, slurred speech, facial drooping, or any other concerns. 9- Front Wheel Walker to use for assistance with ambulation. Scripts Prednisone (Prednisone) 20 Mg Tab 20 MG PO BID, #8 TAB 0 Refills Prov: TOVA MENDEZ 08/23/17 Albuterol Sulfate (Albuterol Sulfate) 2.5 Mg/3 Ml Vial.neb 2.5 MG IH UD, #25 EA 0 Refills Prov: TOVA MENDEZ 08/23/17 TOVA MENDEZ Aug 23, 2017 19:38
[2017-08-23 19:51] LABS: BASOPHILS % (AUTO) 0 % (0-10); EOSINOPHILS # (AUTO) 0.2 10^3/uL (0.0-0.3); EOSINOPHILS % (AUTO) 3 % (0-10); HEMATOCRIT 33 % (35-52); HEMOGLOBIN 10.2 G/DL (11.5-16.0); LYMPHOCYTES # (AUTO) 0.5 X 10^3 (1.0-4.0); LYMPHOCYTES % (AUTO) 9 % (12-44); MEAN CORPUSCULAR HEMOGLOBIN 32 PG (25-34); MEAN CORPUSCULAR HGB CONC 31 G/DL (32-36); MEAN CORPUSCULAR VOLUME 105 FL (80-99); MEAN PLATELET VOLUME 10.1 FL (7.4-10.4); MONOCYTES # (AUTO) 0.7 X 10^3 (0.0-1.0); MONOCYTES % (AUTO) 12 % (0-12); NEUTROPHILS # (AUTO) 4.5 X 10^3 (1.8-7.8); NEUTROPHILS % (AUTO) 76 % (42-75); PLATELET COUNT 120 10^3/uL (130-400); RED BLOOD COUNT 3.19 10^6/uL (4.35-5.85); RED CELL DISTRIBUTION WIDTH 16.1 % (10.0-14.5)
[2017-08-23 20:10] LABS: ALBUMIN 3.7 GM/DL (3.2-4.5); BILIRUBIN,TOTAL 0.5 MG/DL (0.1-1.0); CALCIUM 8.6 MG/DL (8.5-10.1); CREATININE SERUM 1.87 MG/DL (0.60-1.30); POTASSIUM 5.8 MMOL/L (3.6-5.0); TOTAL PROTEIN 6.3 GM/DL (6.4-8.2)
[2017-08-23] MEDS ORDERED: NS IV 1000 ML 1,000 ML IV ONE (20:16)
--- NOTE | 2017-08-23 20:18 | Diagnostic Imaging Report ---
PROCEDURE: CT head and CT cervical spine without contrast. TECHNIQUE: Multiple contiguous axial images were obtained through the brain and cervical spine without the use of intravenous contrast. Sagittal and coronal reformations through the cervical spine were then performed. INDICATION: Head and neck pain. Comparison is made with prior examination from 08/21/2017. FINDINGS: The is prominence of the ventricles and sulci. There is mild chronic microvascular ischemic disease. There is no hydrocephalus. There is no midline shift. There is no intracranial mass, hemorrhage or extra-axial fluid collection. The calvarium is intact. The sinuses and mastoid air cells are clear. Evaluation of the cervical spine is limited due to motion. There is straightening of normal cervical lordosis. Vertebral body heights are well-maintained. There is posterior facet arthropathy. There is no definite acute fracture or traumatic subluxation. Prevertebral soft tissues are within normal limits. The lung apices are clear. IMPRESSION: Atrophy and some chronic microvascular ischemic disease, however, no acute intracranial abnormality. The evaluation of the cervical spine is limited due to motion. There is some moderate spondylosis, however, no definite acute fracture or traumatic subluxation. Dictated by: Dictated on workstation # [id number]
--- NOTE | 2017-08-23 20:20 | Diagnostic Imaging Report ---
INDICATION: Fall. COMPARISON: No prior examination is available for comparison. EXAMINATION: Single view of the chest was obtained. FINDINGS: There is cardiomegaly. There is some right basilar atelectasis and/or pneumonitis. No pleural effusion or pneumothorax. The mediastinum is unremarkable. IMPRESSION: Cardiomegaly and some right basilar atelectasis and/or pneumonitis. Dictated by: Dictated on workstation # [id number]
[2017-08-23] MEDS ORDERED: cefTRIAXone INJECTION 1,000 MG in NS (IVPB) 100 ML IV ONE (20:30)
[2017-08-23] MEDS ORDERED: ALBU2.5V4 IH (20:35)
[2017-08-23] MEDS ORDERED: PRD20T PO (20:41)
[2017-08-23 22:01] VITALS: BP 137/31
== END 2017-08-23 21:59 ==
LOC: EDUNIT# 19:11 → ER 19:12
DX: R26.89 Other abnormalities of gait and mobility (principal); J98.11 Atelectasis; R40.2142 Coma scale, eyes open, spontaneous, at arrival to emergency department; R40.2242 Coma scale, best verbal response, confused conversation, at arrival to emergency department; R40.2362 Coma scale, best motor response, obeys commands, at arrival to emergency department; F41.9 Anxiety disorder, unspecified; F32.9 Major depressive disorder, single episode, unspecified; E03.9 Hypothyroidism, unspecified; F03.90 Unspecified dementia, unspecified severity, without behavioral disturbance, psychotic disturbance, mood disturbance, and anxiety; I10 Essential (primary) hypertension; Z99.81 Dependence on supplemental oxygen; W18.30XA Fall on same level, unspecified, initial encounter; Y92.129 Unspecified place in nursing home as the place of occurrence of the external cause
CPT/HCPCS: 36415; 70450; 71045; 72125; 80053; 85025; 86141; 94640; 94664; 96361; 96365

== ENCOUNTER 2017-08-25 02:12 | Emergency (ER) | payer MEDICARE ==
[~2017-08-25] VITALS: Ht 160 cm; Wt 81.6 kg
[~2017-08-25 02:12] MED LIST: ALBU2.5V4 IH; PRD20T PO
[2017-08-25] MEDS ORDERED: RT-ALBUTEROL SULF 2.5 MG/3 ML PRE-MIX VIAL INH STA (02:21)
[2017-08-25] MEDS ORDERED: NS IV 500 ML 500 ML IV ONE (02:21)
--- NOTE | 2017-08-25 02:32 | ED Respiratory ---
General Chief Complaint: Respiratory Problems Stated Complaint: LETHARGIC Source: patient, EMS, detention records Exam Limitations: clinical condition (Alzheimer's dementia) History of Present Illness Date Seen by Provider: Aug 25, 2017 Time Seen by Provider: 02:19 Initial Comments Patient presents to the [facility] with a chief complaint per detention staff the patient was acting lethargic and had a sat in the upper 80% range. She was using 2 L by oxygen concentrator and has a documented oxygen saturations were 90% so they increased it to 4 L and it went up to 95% with otherwise unremarkable vital signs per detention notes. She has recently been seen in the ER for a fall related to a urinary tract infection which she is under treatment for ciprofloxacin. Her workup at that time was uneventful. She is also on azithromycin because she was found to have basilar atelectasis on an x-ray. She has a history of COPD. She is on steroids according to the [facility]. EMS reports that when they got there the patient was alert and answering all questions appropriately. COPD is not actually on her list of diagnoses however she does have albuterol ordered as well as 4 more days of prednisone 40 mg daily. EMS reports that she sounded quite wheezy and distant breath sounds they gave her a DuoNeb treatment en route and that improved her breath sounds as well as her mentation immensely. They said on the ride over to the ER she was upright, alert and asking questions. EMS stated that her mouth dryness of initiated some fluids through her IV. Allergies and Home Medications Allergies Coded Allergies: No Known Drug Allergies (Unverified , 08/21/17) Home Medications Albuterol Sulfate 2.5 Mg/3 Ml Vial.neb, 2.5 MG IH UD Prescribed by: TOVA MENDEZ on 08/23/172034 Prednisone 20 Mg Tab, 20 MG PO BID Prescribed by: TOVA MENDEZ on 08/23/172040 Patient Home Medication List Home Medication List Reviewed: Yes Constitutional: see HPI (complete review of systems is difficult to obtain secondary to the patient's), No chills, No diaphoresis EENTM: No ear pain, No eye pain Respiratory: No cough, No short of breath, No wheezing Cardiovascular: No chest pain, No palpitations Gastrointestinal: No abdominal pain, No constipation, No diarrhea, No nausea Genitourinary: No discharge, No dysuria Musculoskeletal: No back pain, No joint pain Past Fdzkekr-Cxcmne-Ofvint Hx Patient Social History Alcohol Use: Denies Use Recreational Drug Use: No Smoking Status: Never a Smoker 2nd Hand Smoke Exposure: No Recent Foreign Travel: No Contact w/Someone Who Travel: No Recent Hopitalizations: No Immunizations Up To Date Tetanus Booster (TDap): Unknown PED Vaccines UTD: Yes Seasonal Allergies Seasonal Allergies: No Surgeries History of Surgeries: Yes Respiratory History of Respiratory Disorde: No Cardiovascular History of Cardiac Disorders: Yes Cardiac Disorders: Hypertension Neurological History of Neurological Disord: Yes Neurological Disorders: Dementia Genitourinary History of Genitourinary Disor: Yes Genitourinary Disorders: UTI-Chronic Gastrointestinal History of Gastrointestinal Di: Yes Gastrointestinal Disorders: Chronic Constipation Musculoskeletal History of Musculoskeletal Dis: No Endocrine History of Endocrine Disorders: Yes Endocrine Disorders: Hypothyroidsim HEENT History of HEENT Disorders: No Cancer History of Cancer: No Psychosocial History of Psychiatric Problem: Yes Behavioral Health Disorders: Anxiety, Depression Integumentary History of Skin or Integumenta: No Family Medical History Significant Family History: No Pertinent Family Hx Physical Exam Vital Signs Vital Signs - First Documented 08/25/17 02:15 Temp 98.9 Pulse 82 Resp 18 B/P (MAP) 138/57 (84) Pulse Ox 93 O2 Delivery Nasal Cannula O2 Flow Rate 2.00 Capillary Refill : General Appearance: WD/WN, no apparent distress Eyes: Bilateral Eye Normal Inspection, Bilateral Eye PERRL, Bilateral Eye EOMI HEENT: PERRL/EOMI, normal ENT inspection, pharynx normal (oropharynx is dry) Neck: non-tender, supple, normal inspection Respiratory: chest non-tender, no respiratory distress, no accessory muscle use , wheezing (few bilateral), expiration Cardiovascular: normal peripheral pulses, regular rate, rhythm Gastrointestinal: normal bowel sounds, soft, no organomegaly, No distended, No guarding, No rebound, tenderness (mild tenderness to right flank) Extremities: no pedal edema, no calf tenderness, normal capillary refill Neurologic/Psychiatric: alert, normal mood/affect, oriented x 3 Skin: normal color, warm/dry Progress/Results/Core Measures Suspected Sepsis SIRS Temperature: Pulse: Respiratory Rate: Laboratory Tests 08/25/17 02:20: White Blood Count 4.6 Blood Pressure / Mean: Laboratory Tests 08/25/17 02:20: Creatinine 1.92H, Platelet Count 113L, Total Bilirubin 0.4 Results/Orders Lab Results Laboratory Tests Test 08/25/17 02:20 Range/Units White Blood Count 4.6 4.3-11.0 10^3/uL Red Blood Count 2.87 L 4.35-5.85 10^6/uL Hemoglobin 9.1 L 11.5-16.0 G/DL Hematocrit 30 L 35-52 % Mean Corpuscular Volume 105 H 80-99 FL Mean Corpuscular Hemoglobin 32 25-34 PG Mean Corpuscular Hemoglobin Concent 30 L 32-36 G/DL Red Cell Distribution Width 16.2 H 10.0-14.5 % Platelet Count 113 L 130-400 10^3/uL Mean Platelet Volume 10.8 H 7.4-10.4 FL Neutrophils (%) (Auto) 82 H 42-75 % Lymphocytes (%) (Auto) 9 L 12-44 % Monocytes (%) (Auto) 6 0-12 % Eosinophils (%) (Auto) 2 0-10 % Basophils (%) (Auto) 0 0-10 % Neutrophils # (Auto) 3.8 1.8-7.8 X 10^3 Lymphocytes # (Auto) 0.4 L 1.0-4.0 X 10^3 Monocytes # (Auto) 0.3 0.0-1.0 X 10^3 Eosinophils # (Auto) 0.1 0.0-0.3 10^3/uL Basophils # (Auto) 0.0 0.0-0.1 10^3/uL Sodium Level 140 135-145 MMOL/L Potassium Level 6.0 H 3.6-5.0 MMOL/L Chloride Level 107 98-107 MMOL/L Carbon Dioxide Level 27 21-32 MMOL/L Anion Gap 6 5-14 MMOL/L Blood Urea Nitrogen 46 H 7-18 MG/DL Creatinine 1.92 H 0.60-1.30 MG/DL Estimat Glomerular Filtration Rate 25 BUN/Creatinine Ratio 24 Glucose Level 107 H 70-105 MG/DL Calcium Level 8.4 L 8.5-10.1 MG/DL Magnesium Level 1.8 1.8-2.4 MG/DL Total Bilirubin 0.4 0.1-1.0 MG/DL Aspartate Amino Transf (AST/SGOT) 14 5-34 U/L Alanine Aminotransferase (ALT/SGPT) 13 0-55 U/L Alkaline Phosphatase 42 40-136 U/L C-Reactive Protein High Sensitivity 7.34 H 0.00-0.50 MG/DL B-Type Natriuretic Peptide 532.5 H <100.0 PG/ML Total Protein 5.8 L 6.4-8.2 GM/DL Albumin 3.4 3.2-4.5 GM/DL My Orders Orders - SHABANA HUSSEIN Chest 1 View, Ap/Pa Only (08/25/17 02:21) Albuterol Pre-Mix Nebs (Rt) (Proventil (08/25/17 02:21) BNP (08/25/17 02:21) Cbc With Automated Diff (08/25/17:21) Comprehensive Metabolic Panel (08/25/17 02:21) Hs C Reactive Protein (08/25/17 02:21) Magnesium (08/25/17 02:21) Saline Lock/Iv-Start (08/25/17 02:21) Ns Iv 500 Ml (Sodium Chloride 0.9%) (08/25/17 02:21) Svn Sm Volume Nebulizer Rt-Rfs (08/25/17 02:21) Ct Abdomen/Pelvis Wo (08/25/17 02:57) Vital Signs/I&O Vital Sign - Last 12Hours 08/25/17 02:15 Temp 98.9 Pulse 82 Resp 18 B/P (MAP) 138/57 (84) Pulse Ox 93 O2 Delivery Nasal Cannula O2 Flow Rate 2.00 Capillary Refill : Progress Note #1: Time: 02:35 Progress Note Patient is on her home dose of O2 satting about 89%. Her wheezing is fairly mild compared to the report given from EMS prior to her DuoNeb treatment. They gave her another round of albuterol see if can't get it to improve some. Her sats done improved some she may benefit from an overnight stay some workup and continued steroids and azithromycin. This could also at the detention but it sounds like she wasn't getting any kind nebulized albuterol. Her altered mental state could come from the fact that its 2:00 in the morning versus possibly hypoxia if she is having some bronchoconstriction. she has a UTI which she just make her that much easier to have delirium. If you're trying to avoid delirium we can treat her hypoxia and try and keep her in a familiar environment. We'll let her continue on the ciprofloxacin for her UTI and her primary care team can had just her antibiotics according to the culture and sensitivity that they obtained. The patient is not diabetic and an Accu check has not been obtained; however she is alert and answering questions so we'll just get the blood sugar off CMP. Progress Note #2: Time: 02:59 Progress Note Patient's abrupt a milligram per deciliter of hemoglobin in the last 2 days after having 2 falls. She still having some right-sided abdominal and flank pain. Her creatinine is not in any conducive to using contrast CT abdomen pelvis but we'll do a noncontrast study for overt bleeds. The BNP is mildly elevated at 500. There is no historical contacts to compare this to however clinically she appears to be dry has no crackles and no radiographic findings of pulmonary congestion suggest that she is fluid overloaded. While she has received some extra fluids probably threw her recent ER trips she still appears to be dry and has no pedal edema. This probably does not relate to her current mild hypoxia. Minimal elevation of the CRP may be due to her UTI. She's had an occasional rare dry cough since she's been here. White blood cell count is not elevated. A pneumonia is unlikely. By just giving her a breathing treatment increasing her oxygen by nasal cannula from 2-3 L her sats as stated in the mid 90s. She got up on her own with standby assist from nursing staff to go to the bathroom. She is probably appropriate to be in a detention and have her oxygen saturation titrated as per discharge orders from her primary care provider as well as some extra support while she is on the antibiotics and steroids. If no pathology is noted on the CT of her abdomen that would correlate with her very minimal drop in hemoglobin then she should be good to go back to the detention for continued management outpatient by the PCP team. Diagnostic Imaging Diagonstic Imaging: Xray Plain Films/CT/US/NM/MRI: chest (1v) Comments Chest x-ray unchanged from 2 days ago 08/23/17. No significant pleural effusions or infiltrates. Cardiomegaly noted. Reviewed: Reviewed by Me Diagonstic Imaging: CT (without contrast) Plain Films/CT/US/NM/MRI: abdomen, pelvis Comments No acute pathology. No free air or significant fluid collection noted. No fracture or destructive bony lesions. Soft tissues are unremarkable. 3.1 cm infrarenal abdominal aortic aneurysm. No evidence of rupture. Departure Impression Impression: Primary Impression: COPD with acute exacerbation Disposition: HOME, SELF-CARE Condition: Improved Departure-Patient Inst. Decision time for Depature: 03:34 Referrals: BETHANY MARR MD (PCP/Family) Primary Care Physician Patient Instructions: Acute Bronchitis, Adult (DC) Add. Discharge Instructions: Patient is already on steroids and azithromycin and has when necessary doses of albuterol. Would continue to use the albuterol as prescribed and follow up with the primary care physician as needed. For the next week please give DuoNeb 1 unit dose twice a day on a schedule. Follow discharge instructions to titrate oxygen sats between 89 and 96% using nasal cannula 0-4 L/m. All discharge instructions reviewed with patient and/or family. Voiced understanding. Scripts Ipratropium/Albuterol Sulfate (Iprat-Albut 0.5-3(2.5) mg/3 ml) 3 Ml Ampul.neb 3 ML IH TID for 7 Days, #21 EACH 0 Refills Prov: SHABANA HUSSEIN 08/25/17 Copy Copies To 1: BETHANY MARR MD, TITUS J Aug 25, 2017 02:32
[2017-08-25 02:46] LABS: BASOPHILS % (AUTO) 0 % (0-10); EOSINOPHILS # (AUTO) 0.1 10^3/uL (0.0-0.3); EOSINOPHILS % (AUTO) 2 % (0-10); HEMATOCRIT 30 % (35-52); HEMOGLOBIN 9.1 G/DL (11.5-16.0); LYMPHOCYTES # (AUTO) 0.4 X 10^3 (1.0-4.0); LYMPHOCYTES % (AUTO) 9 % (12-44); MEAN CORPUSCULAR HEMOGLOBIN 32 PG (25-34); MEAN CORPUSCULAR HGB CONC 30 G/DL (32-36); MEAN CORPUSCULAR VOLUME 105 FL (80-99); MEAN PLATELET VOLUME 10.8 FL (7.4-10.4); MONOCYTES # (AUTO) 0.3 X 10^3 (0.0-1.0); MONOCYTES % (AUTO) 6 % (0-12); NEUTROPHILS # (AUTO) 3.8 X 10^3 (1.8-7.8); NEUTROPHILS % (AUTO) 82 % (42-75); PLATELET COUNT 113 10^3/uL (130-400); RED BLOOD COUNT 2.87 10^6/uL (4.35-5.85); RED CELL DISTRIBUTION WIDTH 16.2 % (10.0-14.5); WHITE BLOOD COUNT 4.6 10^3/uL (4.3-11.0)
[2017-08-25 02:58] LABS: ALBUMIN 3.4 GM/DL (3.2-4.5); BILIRUBIN,TOTAL 0.4 MG/DL (0.1-1.0); CALCIUM 8.4 MG/DL (8.5-10.1); CREATININE SERUM 1.92 MG/DL (0.60-1.30); MAGNESIUM 1.8 MG/DL (1.8-2.4); TOTAL PROTEIN 5.8 GM/DL (6.4-8.2)
[2017-08-25] MEDS ORDERED: IPRA3AMP IH (03:37)
[2017-08-25 04:35] VITALS: BP 137/64
--- NOTE | 2017-08-25 06:57 | Diagnostic Imaging Report ---
PROCEDURE: CT abdomen and pelvis without contrast. TECHNIQUE: Multiple contiguous axial images were obtained through the abdomen and pelvis without the use of intravenous contrast. INDICATION: Lethargy. There is mild basilar atelectasis, bilaterally. There may be a small amount of pleural fluid as well. Unenhanced images of the liver reveal no focal lesion. Gallbladder surgically absent. Spleen is prominent without evidence of focal lesion. There is extensive atherosclerotic calcification of aorta and visceral vessels. There is no evidence of pancreatic or adrenal gland lesion. Approximately 3 cm cyst is seen in the posterior left kidney. There is also an approximately 2 cm cystic structure which may be complicated along the inferior pole of the right kidney. No free fluid is identified. Numerous colonic diverticula are seen without evidence of inflammation. There is no evidence of free fluid or pathologic adenopathy in the pelvis. IMPRESSION: Probable bilateral renal cysts which are incompletely evaluated on the noncontrasted exam. If indicated, renal ultrasonography may be of value. No acute abnormality seen in the abdomen or pelvis. There is an approximately 3.1 cm infrarenal abdominal aortic aneurysm and moderate lumbar spondylosis. Dictated by: Dictated on workstation # [id number]
--- NOTE | 2017-08-25 07:03 | Diagnostic Imaging Report ---
INDICATION: Dyspnea. 0238 hours. Portable semiupright AP view of the chest is obtained with comparison made study of 08/23/2017. FINDINGS: There is mild cardiomegaly. No pneumothorax or consolidation is identified. There is no evidence of significant pleural fluid. IMPRESSION: Mild cardiomegaly without evidence of acute abnormality or adverse change. Dictated by: Dictated on workstation # [id number]
== END 2017-08-25 04:35 | disposition home or self-care (01) ==
LOC: EDUNIT# 02:12 → ER 02:13
DX: J44.1 Chronic obstructive pulmonary disease with (acute) exacerbation (principal); F41.9 Anxiety disorder, unspecified; F32.9 Major depressive disorder, single episode, unspecified; E03.9 Hypothyroidism, unspecified; K59.09 Other constipation; I10 Essential (primary) hypertension; F03.90 Unspecified dementia, unspecified severity, without behavioral disturbance, psychotic disturbance, mood disturbance, and anxiety; Z79.52 Long term (current) use of systemic steroids
CPT/HCPCS: 36415; 71045; 74176; 80053; 83735; 83880; 85025; 86141

== ENCOUNTER → 2017-08-28 | Outpatient (CLI) | payer MEDICARE ==
[~2017-08-28] MED LIST changes: +IPRA3AMP IH
--- NOTE | 2017-08-28 10:08 | Diagnostic Imaging Report ---
CLINICAL INDICATION: Patient complains of hearing sounds in her head, difficulty talking on the phone due to sounds. The patient has left leg weakness and difficulty walking with frequent falls and difficulty sleeping at night. EXAM: MRI of the brain/ IACs performed without and with 18 cc of Gadavist IV contrast. Sequences include sagittal T1, axial T2, axial flair, axial T1, axial gradient echo, DWI, ADC map, axial T2 3D fiesta, axial T1 post contrast whole brain, coronal T1 fat-sat post IV contrast whole brain, sagittal T1 post IV contrast whole brain, axial T1 post IV contrast thin fat sat, and coronal T1 post IV contrast thin. COMPARISONS: Head CT without IV contrast dated 08/23/2017. FINDINGS: There is no evidence of acute cerebral infarct, intracranial hemorrhage, or gross mass effect. The brain parenchymal volume appears appropriate for patient's age. There are focal and mildly confluent areas of high T2 signal white matter changes involving both cerebral hemispheres, periventricular regions, and glen, likely representing chronic small vessel ischemic disease. There is a subtle roughly 3 mm small area of low gradient echo signal in the mid left periventricular region seen on series 7, image 15 which may represent an area of remote microhemorrhage. The other sequences show no significant abnormality in the region. Cavernous malformation may also be considered. There is normal rags[place]-white matter distinction. There is no significant midline shift or herniation. The [place] vascular structures show no gross abnormality as visualized. The pituitary gland, sella, and suprasellar regions are unremarkable as visualized. There is no evidence of hydrocephalus. The basal cisterns are unremarkable. The skull, extracranial soft tissue, and orbits are unremarkable. There is moderate to large amounts of mucosal thickening in left maxillary sinus. There is minimal mucosal thickening involving ethmoid sinus, right maxillary sinus, sphenoid sinus, and ethmoid sinus. There is motion artifact which obscures the axial 3-D fiesta sequence. There is low-density prominence in the right cerebellar pontine angle region which is more so than the left, but there is motion artifact blurring the area and it cannot be accurately defined. This area measures grossly 4 mm in width and is seen on series 9, images 59 through 62. This is in the region of the right seventh and eighth cranial nerves. There is also note of a vessel seen adjacent to the region. The left IAC and cerebellopontine angle region is unremarkable. The remainder of the visualized cranial nerves and basal cistern regions are unremarkable. The inner ear fluid-filled structures are grossly unremarkable. There is a small amount of fluid in both mastoid air cells. IMPRESSION: 1: There is motion artifact which obscures the axial 3-D fiesta sequence limiting evaluation of the IACs and cerebellopontine angle. There is an area of amorphous thickening in the right cerebellopontine angle region adjacent to or involving the right seventh/eighth cranial nerves. This may represent artifact, but a mass cannot be completely excluded. MRI of the IACs with and without IV contrast is suggested for further evaluation. 2. There is no evidence of acute intracranial process. 3. Age-related brain parenchymal changes with chronic small vessel ischemic disease. 4: There is a 3 mm area in the mid left periventricular region, which may represent remote microhemorrhage versus cavernous malformation. 5: Diffuse paranasal sinus disease with the left maxillary sinus affected the most. There is a small amount of fluid in both mastoid air cells. Dictated by: Dictated on workstation # [id number]
--- NOTE | 2017-08-28 10:36 | Diagnostic Imaging Report ---
PROCEDURE: MR angiography of the brain without the use of contrast. TECHNIQUE: 3D [id number] non contrast enhanced MR angiography of the head was performed. A source data was reformatted into rotating MIP projections. INDICATION: Left leg weakness and difficulty walking with frequent falls. No prior MRI studies are available for comparison. There is perfusion within the distal vertebral arteries and basilar artery. Flow is identified in the distal internal carotid arteries. There is flow in the anterior, middle and posterior cerebral arteries. No intracranial stenosis is seen. No aneurysm or vascular malformation is seen. IMPRESSION: Unremarkable MRA of the brain. Dictated by: Dictated on workstation # [id number]
--- NOTE | 2017-08-28 10:41 | Diagnostic Imaging Report ---
PROCEDURE: MR angiography neck without contrast. TECHNIQUE: Non contrast enhanced MR angiography of the neck was performed. Source data was reformatted into rotating MIP projections. INDICATION: Left leg weakness and difficulty walking with frequent falls. COMPARISON: No prior studies are available for comparison. FINDINGS: Study is significantly limited. There is a large amount of motion on the study which does create significant reconstruction artifact. The vertebral and carotid arteries are patent. Assessment for possible stenosis cannot be performed on these images due to marked artifact. No complete occlusion is identified. IMPRESSION: Significantly limited study due to artifact and motion. No gross abnormality seen. If there is concern for carotid stenosis, CT angiography or carotid Doppler can be performed for further evaluation. Dictated by: Dictated on workstation # [id number]
== END ==
LOC: RAD 08:24
PROVIDERS: ATTEND Physician Assistant
DX: I99.8 Other disorder of circulatory system (principal); G93.89 Other specified disorders of brain; J32.8 Other chronic sinusitis; R41.82 Altered mental status, unspecified; R53.1 Weakness; R29.6 Repeated falls
CPT/HCPCS: 70544; 70547; 70551

== ENCOUNTER 2017-09-23 14:24 | Outpatient (RCR) | payer OTHER, MEDICARE ==
[~2017-09-23 14:24] MED LIST changes: -IPRA3AMP IH; +IPRA3AMP31 IH
== END 2017-12-22 | disposition home or self-care (01) ==
LOC: CARD 14:24
PROVIDERS: ATTEND Internal Medicine Interventional Cardiology
DX: I12.9 Hypertensive chronic kidney disease with stage 1 through stage 4 chronic kidney disease, or unspecified chronic kidney disease (principal); N18.9 Chronic kidney disease, unspecified; E78.5 Hyperlipidemia, unspecified; J44.9 Chronic obstructive pulmonary disease, unspecified; R06.02 Shortness of breath
CPT/HCPCS: 93225; 93226

== ENCOUNTER → 2017-10-02 | Outpatient (CLI) | payer MEDICARE ==
[~2017-10-02] MED LIST changes: +IPRA3AMP IH; -IPRA3AMP31 IH
== END ==
LOC: CARD 14:07
PROVIDERS: ATTEND Internal Medicine Interventional Cardiology
DX: J44.9 Chronic obstructive pulmonary disease, unspecified (principal); I12.9 Hypertensive chronic kidney disease with stage 1 through stage 4 chronic kidney disease, or unspecified chronic kidney disease; N18.9 Chronic kidney disease, unspecified; E78.5 Hyperlipidemia, unspecified; R06.02 Shortness of breath; I34.0 Nonrheumatic mitral (valve) insufficiency
CPT/HCPCS: 93306